=== PATIENT | female | born 1945 | race Caucasian/White ===

== ENCOUNTER 2019-08-10 09:39 | Outpatient (CLI) | payer MEDICARE, MEDICAID, OTHER, SELFPAY ==
[2019-08-10 10:16] LABS: Basophils # 0.1 10^3/uL (0.0-0.1); Eosinophils % 0.8 %; Hematocrit 36.6 % (37.0-47.0); Hemoglobin 10.5 g/dL (11.5-15.3); Lymphocytes % 20.2 %; Mean Corpuscular HGB Conc 28.7 g/dL (30.0-36.0); Mean Corpuscular Hemoglobin 24.8 pg (28.0-34.0); Mean Corpuscular Volume 86.5 fL (81-99); Mean Platelet Volume 9.4 fL (7.4-10.4); Monocytes # 0.4 10^3/uL (0.2-0.9); Monocytes % 7.4 %; Neutrophils # 3.5 10^3/uL (1.8-7.7); Neutrophils % 70.2 %; Nucleated Red Blood Cells % 0 %; Platelet Count 294 10^3/cmm (130-400); Red Blood Count 4.23 10^6/uL (4.1-5.3)
[2019-08-10 11:24] LABS: Add RBC Morph Yes; Slide Review Slide Review Perform
[2019-08-10 11:25] LABS: Anisocytosis 1+; Dimorphic RBC 2+; Ovalocytes Trace; Poikilocytosis 2+; Tear Drop Cells Trace
[2019-08-10 11:26] LABS: Macrocytosis 2+; RBC Morph Comp Yes
[2019-08-10 11:29] LABS: Pathology Refferal No
== END 2019-08-10 09:40 | disposition home or self-care (01) ==
LOC: LAB 09:51
PROVIDERS: PCP Family Medicine; Visit Provider Family Medicine
DX: Z13.0 Encounter for screening for diseases of the blood and blood-forming organs and certain disorders involving the immune mechanism (principal)
CPT/HCPCS: 36415; 85025

== ENCOUNTER 2019-08-24 10:07 | Outpatient (CLI) | payer MEDICARE, MEDICAID, OTHER, SELFPAY ==
[2019-08-24 10:39] LABS: Basophils # 0.1 10^3/uL (0.0-0.1); Basophils % 1.3 %; Eosinophils # 0.1 10^3/uL (0.0-0.8); Eosinophils % 1.1 %; Hematocrit 40.9 % (37.0-47.0); Hemoglobin 12.1 g/dL (11.5-15.3); Lymphocytes # 1.3 10^3/uL (0.8-4.8); Lymphocytes % 22.7 %; Mean Corpuscular HGB Conc 29.6 g/dL (30.0-36.0); Mean Corpuscular Hemoglobin 26.7 pg (28.0-34.0); Mean Corpuscular Volume 90.3 fL (81-99); Mean Platelet Volume 9.5 fL (7.4-10.4); Monocytes # 0.5 10^3/uL (0.2-0.9); Monocytes % 8.7 %; Neutrophils # 3.6 10^3/uL (1.8-7.7); Nucleated Red Blood Cells % 0 %; Platelet Count 314 10^3/cmm (130-400); Red Blood Count 4.53 10^6/uL (4.1-5.3); White Blood Count 5.5 10^3/uL (4.0-10.0)
[2019-08-24 10:55] LABS: Iron 39 ug/dL (37-145)
[2019-08-24 11:21] LABS: Add RBC Morph Yes
[2019-08-24 11:22] LABS: RBC Morph Comp No
[2019-08-24 11:31] LABS: Poikilocytosis 2+
[2019-08-24 11:32] LABS: Anisocytosis 2+
== END 2019-08-24 10:08 | disposition home or self-care (01) ==
LOC: LAB 10:12
PROVIDERS: PCP Family Medicine; Visit Provider Family Medicine
DX: Z13.0 Encounter for screening for diseases of the blood and blood-forming organs and certain disorders involving the immune mechanism (principal)
CPT/HCPCS: 36415; 83540; 85025

== ENCOUNTER 2019-09-07 14:09 | Outpatient (CLI) | payer MEDICARE, OTHER, MEDICAID, SELFPAY ==
--- NOTE | 2019-09-07 14:19 | USCV_ITS ---
Nguyen Washburn Age: 73 Gender: F : 1945 Exam Date: 09/07/2019 14:37 Ordering Phys: NOT ON FILE, DOCTOR XX Technologist: Exam Location: [facility] [place]_ Indication: CLAUDICATION RIGHT LEFT Brachial 138.00 mmHg Brachial 130.00 mmHg Pressure (mmHg) Waveform Pressure (mmHg) Waveform 135.00 VEHICLE OPERATOR 137.00 133.00 DPA 130.00 0.98 Ankle/Brachial Index 0.99 127.00 Pre-Exercise Toe Pressure 123.00 0.92 Pre-Exercise Toe/Brachial Index 0.89 FINDINGS Normal resting ABIs bilaterally Normal resting TBIs bilateral CONCLUSIONS No significant arterial obstruction, based on the above findings Dr Robert Woo MD [facility] (Electronically Signed) Final Date: 08 September 2019 15:25 S
--- NOTE | 2019-09-07 14:22 | USCV_ITS ---
Wu Nguyen Age: 73 Gender: F : 1945 Exam Date: 09/07/2019 14:37 Ordering Phys: NOT ON FILE, DOCTOR XX Technologist: Katrina Patterson Exam Location[place] [facility] [place] Indication: OCCLUSION Risk Factors: Previous Vascular Surgery: Right Brachial BP: / Left Brachial BP: / Right Left Velocity (cm/s) Spectral Plaque Velocity (cm/s) Spectral Plaque Syst/Diast Broadening Syst/Diast Broadening 89.30/ 25.40 Prox CCA 91.50 / 23.20 69.50/ 17.60 Mid CCA 95.90 / 27.60 93.70/ 28.70 Distal CCA 80.50 / 27.60 71.70/ 25.40 Prox ICA 105.80/ 28.70 79.40/ 17.60 Mid ICA 94.80 / 33.10 93.70/ 35.30 Distal ICA 101.40/ 33.10 140.00 ECA 127.90 1.35 ICA/CCA 1.10 Antegrade Vertebral Antegrade 52.90/ 17.60 cm/s 71.70/ 26.50 cm/s Tri Subclavian Tri FINDINGS Moderate heterogeneous plaques at the bifurcation and proximal internal carotid artery. Minimal thickening in the common carotid arteries bilaterally Antegrade flow in the vertebral arteries bilaterally Normal Doppler flow velocities in the external and subclavian arteries bilaterally CONCLUSIONS Moderate heterogeneous plaques at the bifurcation and proximal internal carotid arteries bilaterally with velocity elevation consistent with 16-49% stenosis. Minimal thickening in the common carotid arteries bilaterally. No previous studies are available for comparison. Dr Robert Woo MD FAC (Electronically Signed) Final Date: 08 September 2019 15:33 S
== END 2019-09-07 14:10 | disposition home or self-care (01) ==
LOC: US 14:10
PROVIDERS: PCP Family Medicine; Visit Provider Surgery Vascular Surgery
DX: I65.23 Occlusion and stenosis of bilateral carotid arteries (principal); Z98.890 Other specified postprocedural states
CPT/HCPCS: 93880; 93922

== ENCOUNTER 2019-09-25 09:48 | Outpatient (CLI) | payer MEDICARE, OTHER, MEDICAID, SELFPAY ==
[2019-09-25 10:22] LABS: Basophils # 0.1 10^3/uL (0.0-0.1); Basophils % 0.8 %; Eosinophils # 0.1 10^3/uL (0.0-0.8); Eosinophils % 1.3 %; Hematocrit 45.2 % (37.0-47.0); Hemoglobin 13.9 g/dL (11.5-15.3); Lymphocytes # 1.4 10^3/uL (0.8-4.8); Lymphocytes % 22.9 %; Mean Corpuscular HGB Conc 30.8 g/dL (30.0-36.0); Mean Corpuscular Volume 91.1 fL (81-99); Mean Platelet Volume 9.4 fL (7.4-10.4); Monocytes # 0.5 10^3/uL (0.2-0.9); Monocytes % 7.5 %; Neutrophils # 4.1 10^3/uL (1.8-7.7); Neutrophils % 67.3 %; Nucleated Red Blood Cells % 0 %; Platelet Count 273 10^3/cmm (130-400); Red Blood Count 4.96 10^6/uL (4.1-5.3); Red Cell Distribution Width 18.3 % (12.1-15.1)
[2019-09-25 10:38] LABS: Iron 38 ug/dL (37-145)
== END 2019-09-25 09:49 | disposition home or self-care (01) ==
LOC: LAB 09:53
PROVIDERS: PCP Family Medicine; Visit Provider Family Medicine
DX: Z13.0 Encounter for screening for diseases of the blood and blood-forming organs and certain disorders involving the immune mechanism (principal)
CPT/HCPCS: 36415; 83540; 85025

== ENCOUNTER 2020-05-27 13:56 | Outpatient (CLI) | payer MEDICARE, OTHER, MEDICAID, SELFPAY ==
--- NOTE | 2020-05-27 14:03 | XR_ITS ---
WS: [id number] DEXA (DUAL ENERGY X-RAY ABSORPTIOMETRY) Bone mineral density was performed using a [employer] machine. HISTORY: OTHER SPECIFIED ORDERS OF BONE DENSITY AND STRUCTURES COMPARISON: None available. Lumbar spine BMD (L1-L4): 1.250 g/cm2 T score: 0.6 Z score: 1.9 Total hip BMD: Left: 0.894 g/cm2. T score: -0.9 Z score: 0.4 Right: 0.836 g/cm2. T score: -1.4 Z score: -0.1 10 year probability of a major osteoporotic fracture is 23%. XR/XR DEXA axial skeleton* 40331 IMPRESSION: OSTEOPENIA based upon the WHO classification for females.
== END 2020-05-27 13:57 | disposition home or self-care (01) ==
PROVIDERS: PCP Family Medicine; Visit Provider Family Medicine
DX: M85.89 Other specified disorders of bone density and structure, multiple sites (principal)
CPT/HCPCS: 77080

== ENCOUNTER 2020-07-04 10:01 | Outpatient (CLI) | payer MEDICARE, OTHER, MEDICAID, SELFPAY ==
[2020-07-04 12:14] LABS: Basophils # 0.1 10^3/uL (0.0-0.1); Basophils % 0.9 %; Eosinophils # 0.1 10^3/uL (0.0-0.8); Eosinophils % 0.9 %; Hematocrit 39.7 % (37.0-47.0); Hemoglobin 11.9 g/dL (11.5-15.3); Lymphocytes # 1.5 10^3/uL (0.8-4.8); Lymphocytes % 19.5 %; Mean Corpuscular Hemoglobin 24.3 pg (28.0-34.0); Mean Corpuscular Volume 81.2 fL (81-99); Mean Platelet Volume 9.3 fL (7.4-10.4); Monocytes # 0.5 10^3/uL (0.2-0.9); Monocytes % 6.2 %; Neutrophils # 5.59 10^3/uL (1.8-7.7); Neutrophils % 72.2 %; Nucleated Red Blood Cells % 0 %; Platelet Count 352 10^3/cmm (130-400); Red Blood Count 4.89 10^6/uL (4.1-5.3); Red Cell Distribution Width 18.5 % (12.1-15.1); Reticulocyte % 1.6 % (0.5-2.0); White Blood Count 7.7 10^3/uL (4.0-10.0)
[2020-07-04 12:39] LABS: Alanine Aminotransferase 14 U/L (0-33); Albumin Level 4.3 g/dL (3.5-5.2); Alkaline Phosphatase 115 IU/L (35-105); Aspartate Amino Transferase 17 U/L (0-32); Blood Urea Nitrogen 10 mg/dL (8-23); Calcium 9.2 mg/dL (8.5-10.5); Carbon Dioxide 27 mmol/L (22-29); Chloride 99 mmol/L (98-107); Ferritin 15 ng/mL (15-150); Globulin 2.7 g/dL (1.3-4.6); Glucose 108 mg/dL (65-115); Iron 26 ug/dL (37-145); Lactate Dehydrogenase 181 U/L (135-214); Osmolality Calculated 286 mOsm/kg (285-295); Percent Saturation 6.3 % (20-50); Sodium 138 mmol/L (136-145); Total Bilirubin 0.5 mg/dL (0.15-1.2); Total Iron Binding Capacity 407 mcg/dl; Unsaturated Iron Binding 381 ug/dL (112-347)
[2020-07-04 12:53] LABS: Vitamin B12 471 pg/mL (232-1245)
[2020-07-04 13:04] LABS: Erythrocyte Sedimentation Rate 25 mm/hr (0-15)
--- NOTE | 2020-07-04 17:03 | ONC CON_ITS ---
Dr. Devi New Patient Note Patient: Nguyen Washburn Unit #: [id number]: 1945 Dicatated By: Albino Devi M.D.Date of Visit: Jul 04, 2020 Onc MED New Patient/Consult Referring Physician: Angelo Baca Chief Complaint: Anemia. History of Present Illness: This is a 74-year-old woman with iron deficiency anemia. She has hypertension, hyperlipidemia, and peripheral arterial disease. She underwent a percutaneous atherectomy of the left popliteal artery in June 2019. At that time she was noted to be severely anemic, hemoglobin 7.0 g. Her serum iron was low, consistent with iron deficiency. Her stool Hemoccult was reported to be negative. She had a good response to oral iron replacement, which she stopped approximately 8 months ago. At her follow-up visit on 05/13/2020 she was mildly anemic with hemoglobin 12.0 g with borderline low red cell indices. Her white blood cell count at that time was 8200 and her platelet count was normal at 351,000. Her serum iron was low again at 29 mcg/dL. She then restarted on her oral iron supplement. She is seen now in regard to the anemia. She does report that she has been feeling tired all the time, and she has had some decline in her activity tolerance. ECOG score is 1. Her appetite has not been very consistent she also has some early satiety. Over the past year she has had significant weight loss, in the range of 25 to 30 pounds. She does not have fever, night sweats, or hot flashes. She has some shortness of breath with activity. She does not complain of resting dyspnea, cough, or chest pain. She has been having some slight nausea with the iron supplement. She has heartburn if she overeats. Bowel function has been okay with fiber. She has not been aware of any blood in the stool. She had a colonoscopy about 3 years ago. She has urinary frequency and nocturia, and she also complains of poor bladder control. She has some pain in her lower back and hips. She does not complain of headache. She has dizziness if she gets up too fast. She has just occasional numbness/tingling. She does report having easy bruising with aspirin. Past Medical History: Her medical history includes gastroesophageal reflux disease, hyperlipidemia, hypertension, and peripheral arterial disease. Past Surgical History: Her surgical/procedural history includes tubal ligation, percutaneous atherectomy of left popliteal artery in 2019, left femoral/popliteal bypass in 2014, percutaneous angioplasty of the right common femoral artery in 2014, and right femoral/popliteal bypass in 2014. Medications: amLODIPine Besylate 1 (10 mg) Tablet Oral daily, Aspirin 1 (81 mg) Tablet, chewable Oral daily, Atorvastatin Calcium 1 (40 mg) Tablet Oral daily, Co Q 10 Capsule Oral daily, Daily Vitamin 1 Tablet Oral daily, Ferrous Sulfate 1 (325 (65 fe) mg) Tablet Oral daily, Fiber 1 Capsule Oral daily, Fish Oil 1 (500 mg) Capsule Oral daily Allergies: No Known Allergies. Social History: Ms. Washburn is and she is retired. She has a history of smoking at least a pack of cigarettes daily for 50+ years. She quit smoking approximately 2013. She has just occasional alcohol use. Family History: Father of heart disease at age 58. Mother at age 60 with complications from surgery. Brother age 32 from gunshot. A sister at age 38 from complications of vaginal cancer. Her other sister has been treated for melanoma. Review Of Symptoms: Constitutional - She has been feeling tired she has had some decline in her activity tolerance. Her appetite has not been very consistent and she has early satiety. She has had a weight loss in the range of 20 to 25 pounds over the past year. She does not have fever, night sweats, or hot flashes. ECOG score is 1, Eyes - She has cataracts, ENMT - She has hearing loss. No tinnitus. No sinus congestion/drainage. No mouth sores. No sore throat or difficulty swallowing, Hematologic/Lymphatic - She bruises easily with the aspirin, Respiratory - She has some shortness of breath with activity. No cough. No pleuritic pain or hemoptysis, Cardiovascular - No angina pain. No palpitations, Gastrointestinal - She has had some slight nausea with the iron supplement. She has heartburn if she overeats. Bowel function has been fine with fiber. No blood in the stool or black stools. She had a colonoscopy approximately 2 years ago, Genitourinary (F) - No dysuria or hematuria. She has urinary frequency and nocturia and she has difficulty with bladder control, Musculoskeletal - She has some pain in her lower back and hips, Integumentary - No skin rash or other skin changes, Neurologic - No headache. She has dizziness if she gets up too fast. She occasionally has numbness. No other focal neurologic symptoms, Psychiatric - No anxiety or depression. She has difficulty sleeping. Vital Signs: Performed on Jul 04, 2020 10:55: 5, 4, 25.72, 1.86 sq.m, 67.00 in, 98 %, 101 /min (HIGH), 18 /min, 133/85 mm(hg), 97.8 F (LOW), and 164.2 lbs (HIGH). Physical Examination: Constitutional - She appears to be in good general health, Eyes - Sclerae nonicteric. Conjunctivae clear, ENMT - No lesions noted in the oral cavity, Neck - No mass or thyromegaly, Hematologic/Lymphatic - No cervical, clavicular, or axillary adenopathy, Respiratory - Lungs are clear with diminished air movement bilaterally, Cardiovascular - Heart rhythm is regular. There is a mild tachycardia. There is no murmur, gallop, or rub noted, Abdomen - Soft and non-tender. Liver and spleen are not enlarged. There is no abdominal mass or ascites noted and there is no inguinal adenopathy, Back/Spine - No spine or CVA tenderness noted, Extremities - No edema. She has good dorsalis pedis pulses bilaterally, Integumentary - No rashes. No suspicious skin lesions noted, Neurologic - No focal neurologic deficits noted. Problem List: 1. Recurrent iron deficiency anemia. In the absence of any evidence of GI blood loss, this would appear to be most likely due to inadequate oral iron absorption. 2. She has had significant, unexplained weight loss which is worrisome for underlying malignancy, though she had negative colonoscopy within the past 3 years and she has not had any documented GI blood loss. 3. Hypertension. 4. Hyperlipidemia. 5. Peripheral arterial disease. 6. GERD. Problems Addressed with this Encounter and Plan: 1. Patient with recurrent iron deficiency anemia. In the absence of any evidence of GI blood loss, this would appear to be most likely due to inadequate oral iron absorption. I will check additional laboratory studies today to include CBC, comprehensive metabolic profile, reticulocyte count, LDH level, serum iron studies and ferritin, and B12 level. I also will have her bring in another stool sample for IFOB. If she remains iron deficient on oral iron supplementation, she will be scheduled to come in for parenteral iron replacement with 1 month interval follow-up. 2. She has had significant, unexplained weight loss which is worrisome for underlying malignancy, though she had negative colonoscopy within the past 3 years and she has not had any documented GI blood loss. Depending on the lab findings and results of the stool testing, I may consider further evaluation with the EGD and/or CT scanning. Signed By: Albino Devi M.D. <<Signature on File>>
== END 2020-07-04 10:02 | disposition home or self-care (01) ==
PROVIDERS: PCP Family Medicine; Visit Provider Internal Medicine Medical Oncology
DX: D50.9 Iron deficiency anemia, unspecified (principal); R63.4 Abnormal weight loss; I10 Essential (primary) hypertension; E78.5 Hyperlipidemia, unspecified; I73.9 Peripheral vascular disease, unspecified; K21.9 Gastro-esophageal reflux disease without esophagitis
CPT/HCPCS: 36415; 80053; 82607; 82728; 83540; 83550; 83615; 85025; 85045; 85651; 99205

== ENCOUNTER 2020-07-12 06:05 | Outpatient (CLI) | payer MEDICARE, OTHER, MEDICAID, SELFPAY ==
[2020-07-12] MEDS: ferric carboxy (IVPB) 750 MG in sodium chloride 0.9% (100 ml) 100 ML 460 MG IV (08:20)
== END 2020-07-12 06:06 | disposition home or self-care (01) ==
PROVIDERS: PCP Family Medicine; Visit Provider Internal Medicine Medical Oncology
DX: D50.9 Iron deficiency anemia, unspecified (principal)
CPT/HCPCS: 96365; J1439

== ENCOUNTER 2020-07-19 06:13 | Outpatient (CLI) | payer MEDICARE, OTHER, MEDICAID, SELFPAY ==
[2020-07-19] MEDS: ferric carboxy (IVPB) 750 MG in sodium chloride 0.9% (100 ml) 100 ML 460 MG IV (09:40)
== END 2020-07-19 06:14 | disposition home or self-care (01) ==
LOC: ONCMED 06:15
PROVIDERS: PCP Family Medicine; Visit Provider Internal Medicine Medical Oncology
DX: D50.9 Iron deficiency anemia, unspecified (principal)
CPT/HCPCS: 96365; J1439

== ENCOUNTER 2020-08-12 06:58 | Outpatient (CLI) | payer MEDICARE, OTHER, MEDICAID, SELFPAY ==
--- NOTE | 2020-08-12 07:14 | MM_ITS ---
WS: [id number] BILATERAL SCREENING DIGITAL MAMMOGRAM WITH CAD HISTORY: SCREENING COMPARISON: 07/28/2018 Bilateral CC and MLO views submitted. Computer aided detection analyzed. Breast composition: The breasts are almost entirely fatty. No suspicious masses, microcalcifications or architectural distortion. Benign scattered calcifications in each breast. MM/[place] [id number] IMPRESSION: BI-RADS: 2-Benign FOLLOW UP: 1 Year Follow-up
[2020-08-12 08:44] LABS: Basophils # 0.1 10^3/uL (0.0-0.1); Basophils % 0.9 %; Eosinophils # 0.1 10^3/uL (0.0-0.8); Eosinophils % 1.5 %; Hematocrit 43.6 % (37.0-47.0); Hemoglobin 13.8 g/dL (11.5-15.3); Lymphocytes # 1.7 10^3/uL (0.8-4.8); Lymphocytes % 26.5 %; Mean Corpuscular HGB Conc 31.7 g/dL (30.0-36.0); Mean Corpuscular Hemoglobin 28.3 pg (28.0-34.0); Mean Corpuscular Volume 89.3 fL (81-99); Mean Platelet Volume 10.1 fL (7.4-10.4); Monocytes # 0.5 10^3/uL (0.2-0.9); Neutrophils # 4.05 10^3/uL (1.8-7.7); Neutrophils % 62.8 %; Nucleated Red Blood Cells % 0 %; Platelet Count 256 10^3/cmm (130-400); Red Blood Count 4.88 10^6/uL (4.1-5.3); Red Cell Distribution Width 22.5 % (12.1-15.1); White Blood Count 6.5 10^3/uL (4.0-10.0)
[2020-08-12 09:00] LABS: Alanine Aminotransferase 16 U/L (0-33); Albumin Level 4.3 g/dL (3.5-5.2); Alkaline Phosphatase 94 IU/L (35-105); Anion Gap 14.4 (5-19); Aspartate Amino Transferase 18 U/L (0-32); Blood Urea Nitrogen 8 mg/dL (8-23); Calcium 8.9 mg/dL (8.5-10.5); Carbon Dioxide 28 mmol/L (22-29); Chloride 101 mmol/L (98-107); Ferritin 439 ng/mL (15-150); Globulin 2.8 g/dL (1.3-4.6); Glucose 102 mg/dL (65-115); Iron 73 ug/dL (37-145); Osmolality Calculated 287 mOsm/kg (285-295); Percent Saturation 25.4 % (20-50); Potassium 4.4 mmol/L (3.5-5.1); Sodium 139 mmol/L (136-145); Total Bilirubin 0.3 mg/dL (0.15-1.2); Total Iron Binding Capacity 287 mcg/dl; Total Protein 7.1 g/dL (6.6-8.7); Unsaturated Iron Binding 214 ug/dL (112-347)
[2020-08-12 09:28] LABS: Folate Level 11.3 ng/mL (4.8-37.3)
--- NOTE | 2020-08-13 06:58 | ONC FU_ITS ---
Dr. Devi Patient Follow-Up Note Patient: Nguyen Washburn Unit #: [id number]: 1945 Dicatated By: Albino Devi M.D.Date of Visit:August 12, 2020 Onc Med Follow-up/Prog Note Chief Complaint: Anemia. History of Present Illness: This is a 74-year-old woman with iron deficiency anemia. She has hypertension, hyperlipidemia, and peripheral arterial disease. She underwent a percutaneous atherectomy of the left popliteal artery in June 2019. At that time she was noted to be severely anemic, hemoglobin 7.0 g. Her serum iron was low, consistent with iron deficiency. Her stool Hemoccult was reported to be negative. She had a good response to oral iron replacement which she stopped after about 6 months of treatment. At her follow-up visit on 05/13/2020 she was mildly anemic with hemoglobin 12.0 g with borderline low red cell indices. Her white blood cell count at that time was 8200 and her platelet count was normal at 351,000. Her serum iron was low again at 29 mcg/dL. She then restarted on her oral iron supplement. I had seen her initially on 07/04/2020. She was still mildly anemic with hemoglobin 11.9 g and she had evidence of iron deficiency with transferrin saturation 6.3% and serum ferritin low at 15 ng/mL. As she was not responding to the oral iron, she was given parenteral iron replacement with 2 infusions of Injectafer. She is seen for a follow-up visit. She says she feels really good. She has had significant improvement in her energy/activity tolerance. Her ECOG score is 0. She says she normally does not have much appetite. She does not have fever or night sweats. She had some difficulty with her bowel movements for 1 to 2 weeks after her second iron infusion, but that has resolved now. She otherwise tolerated the parenteral iron well. She has a little bit of acid reflux, which she manages adequately with Pepcid as needed. She has some urgency with urination. She has no other significant complaints. Medications: amLODIPine Besylate 1 (10 mg) Tablet Oral daily, Aspirin 1 (81 mg) Tablet, chewable Oral daily, Atorvastatin Calcium 1 (40 mg) Tablet Oral daily, Co Q 10 Capsule Oral daily, Daily Vitamin 1 Tablet Oral daily, Ferrous Sulfate 1 (325 (65 fe) mg) Tablet Oral daily, Fiber 1 Capsule Oral daily, Fish Oil 1 (500 mg) Capsule Oral daily Allergies: No Known Allergies. Vital Signs: Performed on August 12, 2020 10:11 Height - 67.00 in Weight - 164.4 lbs (HIGH) BSA - 1.86 sq.m BMI - 25.75 Temperature - 98.7 F Pulse - 108 /min (HIGH) Respiration - 18 /min BP - 124/85 mm(hg) O2 Sat - 97 % Pain - 0 Fatigue - 0 Physical Examination: Constitutional - She looks good generally, Eyes - Sclerae nonicteric. Conjunctivae clear, ENMT - No lesions noted in the oral cavity, Hematologic/Lymphatic - No cervical, clavicular, or axillary adenopathy, Respiratory - Lungs sound clear, Cardiovascular - Heart rhythm is regular. There is no murmur, gallop, or rub noted, Abdomen - Soft. Liver and spleen are not enlarged. There is no abdominal mass or ascites noted and there is no inguinal adenopathy, Extremities - There is slight swelling at the right ankle, Neurologic - No focal neurologic deficits noted. Lab/Imaging: Test performed on August 12, 2020 08:11 Ferritin 439 ng/mL Folate 11.3 ng/mL % Iron Saturation 25.4 % Glucose 102 mg/dL BUN 8 mg/dL Iron, Total 73 mcg/dL Creatinine 0.7 mg/dL TIBC 287 mcg/dL Cr Clearance (Est) 85.52 mL/min Sodium 139 mmol/L Potassium 4.4 mmol/L Chloride 101 mmol/L CO2 28 mmol/L Calcium 8.9 mg/dL Protein, Total 7.1 g/dL Albumin 4.3 g/dL Globulin 2.8 g/dL Bilirubin, Total 0.3 mg/dL Alkaline Phosphatase 94 IU/L AST (SGOT) 18 IU/L ALT (SGPT) 16 IU/L WBC 6.5 10^9/L RBC 4.88 10^12/L HGB 13.8 g/dL HCT 43.6 % MCV 89.3 fl MCH 28.3 pg MCHC 31.7 g/dL RDW 22.5 % Platelet Count 256 10^9/L MPV 10.1 fL Neutrophils (Gran) 4.05 10^9/L Lymphocytes 1.7 10^9/L Monocytes 0.5 10^9/L Eosinophils 0.1 10^9/L Basophils 0.1 10^9/L Manual Lymphocytes 26.5 % Manual Monocytes 8.0 % Manual Eosinophils 1.5 % Manual Basophils 0.9 % Problem List: 1. Recurrent iron deficiency anemia. 2. She has had significant, unexplained weight loss which is worrisome for underlying malignancy, though she had negative colonoscopy within the past 3 years and she has not had any documented GI blood loss. 3. Hypertension. 4. Hyperlipidemia. 5. Peripheral arterial disease. 6. GERD. Problems Addressed with this Encounter and Plan: Patient with recurrent iron deficiency anemia. In the absence of any evidence of GI blood loss, most likely due to inadequate oral iron absorption. She was given parenteral iron replacement with 2 infusions of Injectafer, completed on 07/19/2020. She has had a very good response with hemoglobin now up to 13.8 g. She will now continue her regular followup with Dr. Baca. I will see her again as needed. Signed By: Albino Devi M.D. <<Signature on File>>
== END 2020-08-12 06:59 | disposition home or self-care (01) ==
LOC: RADSHAW 06:59 → ONCMED 08:01
PROVIDERS: PCP Family Medicine; Visit Provider Family Medicine
DX: D50.9 Iron deficiency anemia, unspecified (principal); R63.4 Abnormal weight loss; I10 Essential (primary) hypertension; E78.5 Hyperlipidemia, unspecified; I73.9 Peripheral vascular disease, unspecified; K21.9 Gastro-esophageal reflux disease without esophagitis; Z79.899 Other long term (current) drug therapy; Z12.31 Encounter for screening mammogram for malignant neoplasm of breast
CPT/HCPCS: 77067; 80053; 82728; 82746; 83540; 83550; 85025; G0463

== ENCOUNTER → 2022-04-09 11:09 | Outpatient (BNVA) | payer MEDICARE, MEDICAID, SELFPAY | PROVIDERS: PCP Family Medicine; Visit Provider Family Medicine | DX: E53.8 Deficiency of other specified B group vitamins (principal); Z51.81 Encounter for therapeutic drug level monitoring; I10 Essential (primary) hypertension | CPT/HCPCS: 80053; 80061; 82607; 85025 ==

== ENCOUNTER → 2022-09-07 10:53 | Outpatient (BNVA) | payer MEDICARE, MEDICAID, SELFPAY | PROVIDERS: PCP Family Medicine; Visit Provider Family Medicine | DX: Z51.81 Encounter for therapeutic drug level monitoring (principal); R73.09 Other abnormal glucose; E61.1 Iron deficiency; I10 Essential (primary) hypertension; I73.9 Peripheral vascular disease, unspecified; R30.0 Dysuria; Z13.220 Encounter for screening for lipoid disorders | CPT/HCPCS: 80053; 80061; 83036; 83540; 83550; 85025; 87086 ==

== ENCOUNTER → 2022-12-08 11:08 | Outpatient (BNVA) | payer MEDICARE, MEDICAID, SELFPAY | PROVIDERS: PCP Family Medicine; Visit Provider Family Medicine | DX: I10 Essential (primary) hypertension (principal); E78.00 Pure hypercholesterolemia, unspecified; R73.09 Other abnormal glucose; E61.1 Iron deficiency; Z51.81 Encounter for therapeutic drug level monitoring | CPT/HCPCS: 82728; 83550; 84466; 85025 ==

== ENCOUNTER → 2023-03-09 10:15 | Outpatient (BNVA) | payer OTHER, MEDICAID, SELFPAY | PROVIDERS: PCP Family Medicine; Visit Provider Family Medicine | DX: E61.1 Iron deficiency (principal); Z86.010 Personal history of colon polyps; R19.7 Diarrhea, unspecified; Z51.81 Encounter for therapeutic drug level monitoring | CPT/HCPCS: 80053; 83550; 84466; 85025 ==

== ENCOUNTER → 2023-04-23 11:05 | Outpatient (BNVA) | payer OTHER, MEDICAID, SELFPAY | PROVIDERS: PCP Family Medicine; Visit Provider Surgery | DX: E61.1 Iron deficiency (principal) | CPT/HCPCS: 82274 ==

== ENCOUNTER → 2023-05-24 10:45 | Outpatient (BNVA) | payer OTHER, MEDICAID, SELFPAY | PROVIDERS: PCP Family Medicine; Visit Provider Family Medicine | DX: I10 Essential (primary) hypertension (principal); E78.00 Pure hypercholesterolemia, unspecified; D64.9 Anemia, unspecified | CPT/HCPCS: 80053; 80061; 82607; 83540; 84443; 85025 ==

== ENCOUNTER 2023-06-09 09:01 | Day surgery (SDC) | payer MEDICARE, MEDICAID, SELFPAY ==
[2023-06-09 09:24] VITALS: BP 122/92; PULSE 104; RESP 16; TEMP 36.4; O2SAT 97; BMI 23.8
--- NOTE | 2023-06-09 09:37 | ANES.PREANE2 ---
Pre-Anesthetic Assessment Height/Weight: Height 1.7 m Weight 68.946 kg Temp Pulse Resp BP Pulse Ox O2 Del Method 97.5 F L 104 H 16 122/92 97 Room Air 06/09/23 09:24 06/09/23 09:24 06/09/23 09:24 06/09/23 09:24 06/09/23 09:24 06/09/23 09:24 Operation Date: 06/09/23 10:35 Proposed Procedures p [id number] egd [id number] colon G0121 screen colon A risk E61.1 Z12.11(Not Applicable) - Mathieu Maharaj MD s Colonoscopy(Not Applicable) - Mathieu Maharaj MD Familial anesthetic complications: None Was Beta Parvin taken within 24 hours: N/A Was Clonidine taken within 24 hours: N/A Last intake: Intake Last Liquid Date 06/08/23 Last Liquid Time 21:00 Last Solid Date 06/07/23 Last Solid Time 18:00 Social Tobacco (quit 3 weeks ago) and No alcohol Exam alert, oriented x 3, clear to auscultation bilaterally and regular rate & rhythm Airway Mallampati: Class II Dentition: false CV/HEM Hypertension and Peripheral Vascular Disease Metabolic Hyperlipidemia Anesthetic Plan ASA status: 3 Anesthesia: MAC Risk of > 500 ml blood loss (7ml/kg in children): No Medications/Allergies Home Medications Medication Instructions Recorded Confirmed Last Taken Type aspirin 325 mg tablet 325 mg PO DAILY 04/09/22 06/07/23 06/05/23 History coenzyme Q10 10 mg capsule 10 mg PO DAILY 04/09/22 06/09/23 06/07/23 History atorvastatin 40 mg tablet 40 mg PO DAILY #90 tabs 05/24/23 06/07/23 06/07/23 Rx lisinopril 10 mg tablet 10 mg PO DAILY #90 tabs 06/03/23 06/09/23 06/07/23 Rx amlodipine 10 mg tablet 10 mg PO DAILY t 06/07/23 06/09/23 06/07/23 History fiber 9 tab PO DAILY 06/07/23 06/09/23 06/07/23 History ugwztyec-zcky-jejk 8 mg-folic 400 1 tab PO DAILY 06/07/23 06/09/23 06/07/23 History mcg-K 50 mcg-lutein 300 mcg tablet (Multivitamin Women 50 Plus) vitamin E 100 unit tablet 100 unit PO DAILY 06/07/23 06/09/23 06/07/23 History Allergies Allergy/AdvReac Type Severity Reaction Status Date / Time No Known Allergies Allergy Verified 06/07/23 10:58 [facility] Anesthesia Medical History Hx of colonic polyps History of anemia Patient needed iron transfusions x 2 - saw Dr Devi PAD (peripheral artery disease) Hypertension Surgical History History of bilateral tubal ligation S/P popliteal-distal bypass Bilateral - Dr Douglas - ~2014 Family History Mother CAD (coronary artery disease) Hypertension Father Hypertension Sister Cancer female cancer - in 1976 Sister Cancer Melanoma - cancer free for years Hypertension Social History Smoking and tobacco/nicotine status: current every day tobacco/nicotine user cigarettes Packs smoked per day: 0.75 [ Other cigarette details: Started at age 16 and stopped for 6 years. ] Alcohol intake: current Alcohol intake frequency: holidays/special occasions only Substance/Drug Use: never Current occupation: Worked in retail sales [employer] Anesthesia Cardiac Studies: No Data to Display
[2023-06-09] MEDS: sodium chloride 0.9% 1,000 ML 30 ML IV (10:00)
--- NOTE | 2023-06-09 10:59 | P.HP_ITS ---
Same Day Surgery H&P Indication for Procedure/HPI DATE OF PROCEDURE: June 09, 2023 CHIEF COMPLAINT/INDICATIONFOR SURGICAL PROCEDURE: iron deficiency anemia PREOP DIAGNOSIS: iron deficiency anemia PLANNED PROCEDURE: Operation Date: 06/09/23 10:35 Proposed Procedures p 43658 egd [id number] colon G0121 screen colon A risk E61.1 Z12.11(Not Applicable) - Mathieu Maharaj MD s Colonoscopy(Not Applicable) - Mathieu Maharaj MD Medications/Allergies* Home Medications Medication Instructions Recorded Confirmed Type aspirin 325 mg tablet 325 mg PO DAILY 04/09/22 06/07/23 History coenzyme Q10 10 mg capsule 10 mg PO DAILY 04/09/22 06/09/23 History amlodipine 10 mg tablet 10 mg PO DAILY t 06/07/23 06/09/23 History fiber 9 tab PO DAILY 06/07/23 06/09/23 History kzgdiaje-vblm-slul 8 mg-folic 400 1 tab PO DAILY 06/07/23 06/09/23 History mcg-K 50 mcg-lutein 300 mcg tablet (Multivitamin Women 50 Plus) vitamin E 100 unit tablet 100 unit PO DAILY 06/07/23 06/09/23 History Allergies/Adverse Reactions Allergy/AdvReac Type Severity Reaction Status Date / Time No Known Allergies Allergy Verified 06/07/23 10:58 Current Medications: Generic Name Dose Route Start Last Admin Trade Name Freq PRN Reason Stop Dose Admin Sodium Chloride 1,000 mls @ 30 mls/hr 06/09/23 09:15 06/09/23 10:00 Sodium Chloride 0.9% IV 06/10/23 09:14 30 mls/hr .Q24H YVES Administration Pertinent History/Comorbid Conditions* Medical History (Updated 05/24/23 @ 10:38 by Tamara Mcnair MD) Hx of colonic polyps History of anemia Patient needed iron transfusions x 2 - saw Dr Marito PETTIT (peripheral artery disease) Hypertension Surgical History (Updated 04/09/22 @ 19:08 by Mitchell Caban MD) History of bilateral tubal ligation S/P popliteal-distal bypass Bilateral - Dr Douglas - ~2014 Family History (Updated 04/09/22 @ 10:47 by Mitchell Caban MD) CAD (coronary artery disease) Mother Cancer Sister female cancer - in 1976 Sister Melanoma - cancer free for years Hypertension Mother Father Sister Social History Smoking and tobacco/nicotine status: current every day tobacco/nicotine user cigarettes Packs smoked per day: 0.75 [ Other cigarette details: Started at age 16 and stopped for 6 years. ] Alcohol intake: current Alcohol intake frequency: holidays/special occasions only Substance/Drug Use: never Current occupation: Worked in [employer] Pertinent Exam Findings alert, oriented x 3, clear to auscultation bilaterally and regular rate & rhythm Recommendations Surgery/Procedure today Coding Level of Care Code Acute Code for [facility] Anat
[2023-06-09 11:50] VITALS: BP 97/62; PULSE 78; RESP 18; TEMP 36.1; O2SAT 94
[2023-06-09 11:59] VITALS: BP 118/73; PULSE 88; RESP 18; O2SAT 95
--- NOTE | 2023-06-09 12:15 | ANE.PACU2 ---
Inpatient post-anesthesia follow up: Airway intact: Yes Vital signs: Temperature 97.0 F Pulse Rate 88 Respiratory Rate 18 Blood Pressure 118/73 Pulse Oximetry 95 Oxygen Delivery Me thod Room Air Oxygen Flow Rate Fraction of Inspir ed Oxygen Hydration adequate: Yes Nausea and vomiting: No Pain level: 1 Mental status: Baseline
== END 2023-06-09 12:18 | disposition home or self-care (01) ==
PROVIDERS: PCP Family Medicine; Visit Provider Surgery
PROC: 0DJ08ZZ Inspection of Upper Intestinal Tract, Via Natural or Artificial Opening Endoscopic (ICD-10-PCS; CPT 43235; principal; 2023-06-09 10:35)
PROC: 0DJD8ZZ Inspection of Lower Intestinal Tract, Via Natural or Artificial Opening Endoscopic (ICD-10-PCS; CPT 45378; 2023-06-09 10:35)
DX: Z12.11 Encounter for screening for malignant neoplasm of colon (principal); E61.1 Iron deficiency; K44.9 Diaphragmatic hernia without obstruction or gangrene; D12.2 Benign neoplasm of ascending colon; I10 Essential (primary) hypertension; E78.5 Hyperlipidemia, unspecified; Z79.82 Long term (current) use of aspirin; F17.210 Nicotine dependence, cigarettes, uncomplicated
CPT/HCPCS: 43235; 45380; 88305; J2704; J7030

== ENCOUNTER → 2023-06-22 10:24 | Outpatient (BNVA) | payer MEDICARE, MEDICAID, SELFPAY | PROVIDERS: PCP Family Medicine; Visit Provider Surgery | DX: K44.9 Diaphragmatic hernia without obstruction or gangrene (principal); Z09 Encounter for follow-up examination after completed treatment for conditions other than malignant neoplasm | CPT/HCPCS: 99214 ==

== ENCOUNTER 2023-07-05 08:10 | Outpatient (CLI) | payer MEDICARE, MEDICAID, SELFPAY ==
--- NOTE | 2023-07-05 08:30 | FL_ITS ---
WS: [id number] Exam: FL barium swallow [id number] Date/Time of Exam: 07/05/2023 8:12 AM Reason For Exam: Fluoroscopy time: 1min [id number] minutes # of spot films: 4 Oropharyngeal phase of swallowing was normal. The esophagus is smooth in contour. No sign of esophage al stricture or mass. A large paraesophageal hiatal hernia is noted. Opacification of the stomach faizan ws marked prominence of gastric mucosa. There is posterior displacement of the distal esophagus secon anitra to the hiatal hernia. IMPRESSION: 1. No indication of esophageal mass, stricture or motility disorder. No reflux observed. 2. Large paraesophageal hiatal hernia which displaces the distal esophagus posteriorly. Marked prominence of the visualized gastric mucosa which may represent gastritis. Recommendations: Endoscopic evaluation of the stomach should be considered for further work-up.
== END 2023-07-05 08:11 | disposition home or self-care (01) ==
LOC: RAD 08:10
PROVIDERS: PCP Family Medicine; Visit Provider Surgery
DX: K44.9 Diaphragmatic hernia without obstruction or gangrene (principal)
CPT/HCPCS: 74220

== ENCOUNTER → 2023-08-04 13:44 | Outpatient (BNVA) | payer MEDICARE, MEDICAID, SELFPAY | PROVIDERS: PCP Family Medicine; Visit Provider Surgery | DX: K44.9 Diaphragmatic hernia without obstruction or gangrene (principal) | CPT/HCPCS: 99212 ==

== ENCOUNTER → 2023-11-23 09:43 | Outpatient (BNVA) | payer MEDICARE, MEDICAID, SELFPAY | PROVIDERS: PCP Family Medicine; Visit Provider Family Medicine | DX: Z86.2 Personal history of diseases of the blood and blood-forming organs and certain disorders involving the immune mechanism (principal); I10 Essential (primary) hypertension; E78.00 Pure hypercholesterolemia, unspecified; D64.9 Anemia, unspecified | CPT/HCPCS: 80053; 80061; 83540; 84443; 85025 ==

== ENCOUNTER → 2024-05-24 13:03 | Outpatient (BNVA) | payer MEDICARE, MEDICAID, SELFPAY | PROVIDERS: PCP Nurse Practitioner Family; Visit Provider Nurse Practitioner Family | DX: I10 Essential (primary) hypertension (principal); R73.09 Other abnormal glucose; Z86.2 Personal history of diseases of the blood and blood-forming organs and certain disorders involving the immune mechanism | CPT/HCPCS: 80053; 80061; 83036; 84443; 85025 ==

== ENCOUNTER 2024-05-31 21:14 | Emergency (ER) | payer MEDICARE, MEDICAID, SELFPAY ==
[2024-05-31 21:18] VITALS: BP 164/101; PULSE 121; RESP 16; TEMP 36.4; O2SAT 97
--- NOTE | 2024-05-31 21:23 | ECG_ITS ---
[email or web address] Date: 2024-05-31 Pat Name: Nguyen Washburn Department: Room: Gender: Female [employer]os[employer] Engineer: : 1945 Requested By: Bam Clinton Order Number: [id number] Stevens MD: Ricky Mckeon M.D. Measurements Intervals [place] Rate: 117 P: 80 MO: 167 QRS: 60 QRSD: 78 T: 69 QT: 323 QTc: 451 Interpretive Statements SINUS TACHYCARDIA POSSIBLE RIGHT ATRIAL ENLARGEMENT [0.25mV P-WAVE] No previous ECG available for comparison Electronically Signed On 06-02-2024 19:08:38 CDT by Ricky Mckeon M.D. [email or web address]
[2024-05-31 23:07] LABS: Basophils % 0.1 %; Eosinophils % 0.1 %; Hematocrit 45.8 % (36-47); Lymphocytes # 0.8 10^3/uL (0.8-4.8); Lymphocytes % 6.8 %; Mean Corpuscular HGB Conc 33.2 g/dL (30-55); Mean Corpuscular Hemoglobin 29.2 pg (27-33); Mean Corpuscular Volume 88.1 fl (85-98); Mean Platelet Volume 9.1 fL (7.4-10.4); Monocytes # 0.3 10^3/uL (0.2-0.9); Monocytes % 2.5 %; Neutrophils # 10.17 10^3/uL (1.8-7.7); Neutrophils % 90.1 %; Nucleated Red Blood Cells % 0 %; Platelet Count 276 10^3/cmm (157-399); Red Cell Distribution Width 13.5 % (12.1-15.1); White Blood Count 11.29 10^3/uL (3.29-11.43)
[2024-05-31] MEDS: sodium chloride 0.9% 1,000 ML 999 ML IV (23:17)
[2024-05-31] MEDS: ondansetron 2 mg/ML SDV 2 mL 4 MG IVP (23:17)
[2024-05-31 23:37] LABS: Alanine Aminotransferase 25 U/L (0-33); Albumin Level 4.6 g/dL (3.5-5.2); Alkaline Phosphatase 93 U/L (35-105); Blood Urea Nitrogen 15 mg/dL (8-23); Calcium 9.8 mg/dL (8.5-10.5); Carbon Dioxide 23 mmol/L (22-29); Chloride 97 mmol/L (98-107); Creatinine Clr Calc Pharmacy 60.9529; Globulin 3.6 g/dL (1.3-4.6); Sodium 135 mmol/L (136-145); Total Bilirubin 0.6 mg/dL (0.15-1.2); Total Protein 8.2 g/dL (6.6-8.7)
[2024-06-01 00:03] LABS: Aspartate Amino Transferase 22 U/L (0-32); Glucose 157 mg/dL (65-115); Osmolality Calculated 284 mOsm/kg (285-295)
[2024-06-01] MEDS: prochlorperazine 10 mg/2 mL Inj 5 MG IVP (00:39)
[2024-06-01 00:43] VITALS: BP 174/86; PULSE 119; O2SAT 97
[2024-06-01] MEDS: sodium chloride 0.9% 1,000 ML 999 ML IV (01:01)
--- NOTE | 2024-06-01 01:40 | W.ED.NAVMDI ---
HPI - Nausea/Vomiting/Diarrhea General: Chief complaint: Nausea/Vomiting/Diarrhea Stated complaint: N/V for a day in a half,Dehydrated Time Seen by Provider: 05/31/24 22:42 History of Present Illness: This patient is a 78-year-old white female who presents to the emergency department with nausea and vomiting that started yesterday. She has not noticed any diarrhea. She thinks she may have been running a low-grade fever. Some abdominal pain secondary to retching. Associated nausea: Yes Associated symtoms: Reports nausea Related Data Home Medications ?Medication ?Instructions ?Recorded ?Confirmed aspirin 325 mg tablet 325 mg PO DAILY 04/09/22 05/24/24 coenzyme Q10 10 mg capsule 10 mg PO DAILY 04/09/22 05/24/24 fiber 9 tab PO DAILY 06/07/23 05/24/24 lozxuedz-chod-flza 8 mg-folic 400 1 tab PO DAILY 06/07/23 05/24/24 mcg-K 50 mcg-lutein 300 mcg tablet (Multivitamin Women 50 Plus) vitamin E 100 unit tablet 100 unit PO DAILY 06/07/23 05/24/24 Previous Rx's ?Medication ?Instructions ?Recorded amlodipine 10 mg tablet 10 mg PO DAILY #90 tabs 05/24/24 atorvastatin 40 mg tablet 40 mg PO DAILY #90 tabs 05/24/24 lisinopril 10 mg tablet 10 mg PO DAILY #90 tabs 05/24/24 prochlorperazine maleate 5 mg 5 mg PO TID PRN nausea and 06/01/24 tablet (Compazine) vomiting #20 tabs Allergies Allergy/AdvReac Type Severity Reaction Status Date / Time No Known Allergies Allergy Verified 05/31/24 21:23 Review of Systems General: Reports: 10 or more systems reviewed and unremarkable except in HPI and below GI: Reports: nausea and vomiting [facility] PFSH: Medical History Hx of colonic polyps History of anemia Patient needed iron transfusions x 2 - saw Dr Marito PETTIT (peripheral artery disease) Hypertension Surgical History History of hernia repair hiatal hernia repair September 2023 at [place] with Dr. Antunez History of bilateral tubal ligation S/P popliteal-distal bypass Bilateral - Dr Douglas - ~2014 Family History Mother CAD (coronary artery disease) Hypertension Father Hypertension Sister Cancer female cancer - in 1976 Sister Cancer Melanoma - cancer free for years Hypertension Social History Smoking and tobacco/nicotine status: current some day tobacco/nicotine user (during stress) cigarettes Packs smoked per day: 0.75 [ Other cigarette details: Started at age 16 and stopped for 6 years. ] Alcohol intake: current Alcohol intake frequency: holidays/special occasions only Substance/Drug Use: never Current occupation: Worked in [employer] sales Physical Exam Const: COMMON NORMALS: no acute distress, patient oriented x3 and no limitations GENERAL APPEARANCE: cooperative and comfortable HENMT: COMMON NORMALS: normocephalic, atraumatic, Normal nasal mucous membranes and turbinates present, moist oral mucous membranes and oropharynx normal HEAD & SCALP: normal to inspection, normocephalic and atraumatic FACE & SINUS: normal facial exam NOSE: Normal nasal mucous membranes and turbinates present Eye: COMMON NORMALS: Equal, round and reactive pupils present, EOMs intact bilaterally and conjunctivae normal GENERAL EYE: appearance normal, both eyes and all related structures CONJUNCTIVA: Yes conjunctivae normal PUPIL: Yes Equal, round and reactive pupils present Neck/C-Spine: COMMON NORMALS: supple and no JVD Chest: COMMONS NORMALS: normal inspection of the chest Resp: COMMON NORMALS: normal respiratory effort and clear to auscultation bilaterally AUSCULTATION: clear to auscultation bilaterally Cardio: COMMON NORMALS: no JVD, regular rate, regular rhythm, No gallops present (Cardio), No murmurs present (Cardio) and No rub (Cardio) RATE: regular rate RHYTHM: regular rhythm GI: COMMON NORMALS: Normal to inspection, nondistended, normoactive bowel sounds present, Soft to palpation and non-tender AUSCULTATION: Yes normoactive bowel sounds PALPATION: Yes Soft to palpation : COMMON NORMALS: Yes no CVA tenderness BLADDER/KIDNEY EXAM: Yes no CVA tenderness Back/Pelvis: COMMON NORMALS: no CVA tenderness and thoracic and lumbar spine normal to inspection Extremity: COMMON NORMALS: normal to inspection Neuro: COMMON NORMALS: patient oriented x3 and CN's II-XII intact bilaterally Psych: COMMON NORMALS: mental status grossly normal, Normal thought process present and cooperative THOUGHT PROCESS: Normal thought process present Skin: COMMON NORMALS: no rashes or lesions noted, turgor normal and no jaundice GENERAL SKIN EXAM: no rashes or lesions noted and turgor normal Course Vital Signs: Vital signs: Vital Signs Temperature 97.5 F L 05/31/24 21:18 Pulse Rate 119 H 06/01/24 00:43 Respiratory Rate 16 05/31/24 21:18 Blood Pressure 174/86 06/01/24 00:43 Pulse Oximetry 97 06/01/24 00:43 Oxygen Delivery Me thod Room Air 06/01/24 00:43 MDM - Nausea/Vomiting/Diarrhea Medical Decision Making CBC and CMP were normal. Patient was given 2 L of normal saline, 4 mg of Zofran and 5 mg of Compazine IV. Compazine finally relieved her nausea and vomiting. Patient was subsequently discharged in stable condition with a prescription for Compazine. I recommended she push clear liquids until symptoms subside then advance diet slowly. Follow-up with primary care provider in 2 to 3 days if no significant improvement. Lab Data 05/31/24 23:00 05/31/24 23:00 Laboratory Results WBC 11.29 10^3/uL (3.29-11.43) 05/31/24 23:00 RBC 5.20 10^6/uL (3.85-5.65) 05/31/24 23:00 Hgb 15.20 g/dL (11.27-16.99) 05/31/24 23:00 Hct 45.8 % (36-47) 05/31/24 23:00 MCV 88.1 fl (85-98) 05/31/24 23:00 MCH 29.2 pg (27-33) 05/31/24 23:00 MCHC 33.2 g/dL (30-55) 05/31/24 23:00 RDW 13.5 % (12.1-15.1) 05/31/24 23:00 Plt Count 276 10^3/cmm (157-399) 05/31/24 23:00 MPV 9.1 fL (7.4-10.4) 05/31/24 23:00 Neut % (Auto) 90.1 % 05/31/24 23:00 Lymph % (Auto) 6.8 % 05/31/24 23:00 [place] % (Auto) 2.5 % 05/31/24 23:00 Eos % (Auto) 0.1 % 05/31/24 23:00 Baso % (Auto) 0.1 % 05/31/24 23:00 Neut # (Auto) 10.17 10^3/uL (1.8-7.7) H 05/31/24 23:00 Lymph # (Auto) 0.8 10^3/uL (0.8-4.8) 05/31/24 23:00 [place] # (Auto) 0.3 10^3/uL (0.2-0.9) 05/31/24 23:00 Eos # (Auto) 0.0 10^3/uL (0.0-0.8) 05/31/24 23:00 Baso # (Auto) 0.0 10^3/uL (0.0-0.1) 05/31/24 23:00 Nucleated RBC % (auto) 0 % 05/31/24 23:00 Nucleated RBCs # 0.0 /100WBC 05/31/24 23:00 Sodium 135 mmol/L (136-145) L 05/31/24 23:00 Potassium 4.0 mmol/L (3.5-5.1) 05/31/24 23:00 Chloride 97 mmol/L (98-107) L 05/31/24 23:00 Carbon Dioxide 23 mmol/L (22-29) 05/31/24 23:00 Anion Gap 19.0 (5-19) 05/31/24 23:00 BUN 15 mg/dL (8-23) 05/31/24 23:00 Creatinine 0.7 mg/dL (0.5-0.9) 05/31/24 23:00 GFR Calculation Not Reportable 05/31/24 23:00 Glucose 157 mg/dL (65-115) H 05/31/24 23:00 Calculated Osmolality 284 mOsm/kg (285-295) L 05/31/24 23:00 Calcium 9.8 mg/dL (8.5-10.5) 05/31/24 23:00 Total Bilirubin 0.6 mg/dL (0.15-1.2) 05/31/24 23:00 AST 22 U/L (0-32) 05/31/24 23:00 ALT 25 U/L (0-33) 05/31/24 23:00 Alkaline Phosphatase 93 U/L (35-105) 05/31/24 23:00 Total Protein 8.2 g/dL (6.6-8.7) 05/31/24 23:00 Albumin 4.6 g/dL (3.5-5.2) 05/31/24 23:00 Globulin 3.6 g/dL (1.3-4.6) 05/31/24 23:00 No radiology studies performed this visit Discharge Plan Discharge Patient Disposition: Home Clinical Impression: Gastroenteritis Condition: Stable Prescriptions: New prochlorperazine maleate [Compazine] 5 mg tablet 5 mg PO TID PRN (Reason: nausea and vomiting) Qty: 20 0RF No Action aspirin 325 mg tablet 325 mg PO DAILY coenzyme Q10 10 mg capsule 10 mg PO DAILY amlodipine 10 mg tablet 10 mg PO DAILY Qty: 90 1RF atorvastatin 40 mg tablet 40 mg PO DAILY Qty: 90 1RF lisinopril 10 mg tablet 10 mg PO DAILY Qty: 90 1RF fiber Tablet 9 tab PO DAILY vitamin E 100 unit Tablet 100 unit PO DAILY Multivitamin Women 50 Plus 8 mg iron-400 mcg-50 mcg Tablet 1 tab PO DAILY Discharge Orders: Discharge ED (Routine); Ordered 06/01/24 Ordered By: Bam Clinton Referrals: Pilar Curran FNP [Primary Care Provider] - Patient Instructions: Gastroenteritis (DC) Activity Restrictions/Additional Instructions: Push clear liquids until symptoms subside then advance diet slowly. Follow-up with your primary care provider in 2 to 3 days if no improvement. Print Language: Chadian Coding Level of Care Code ED [employer] Manager for Neisha Coppola
[2024-06-01 02:23] VITALS: BP 116/63; PULSE 98; O2SAT 92
== END 2024-06-01 01:54 | disposition home or self-care (01) ==
PROVIDERS: Emergency Provider Emergency Medicine; PCP Nurse Practitioner Family
DX: K52.9 Noninfective gastroenteritis and colitis, unspecified (principal); Z79.82 Long term (current) use of aspirin; F17.210 Nicotine dependence, cigarettes, uncomplicated; I10 Essential (primary) hypertension
CPT/HCPCS: 36415; 80053; 85025; 93005; 96361; 96374; 96375; 99284; J0780; J2405; J7030

== ENCOUNTER → 2024-06-22 14:45 | Outpatient (BNVA) | payer MEDICARE, MEDICAID, SELFPAY | PROVIDERS: PCP Nurse Practitioner Family; Visit Provider Dermatology | DX: L82.1 Other seborrheic keratosis (principal); L57.8 Other skin changes due to chronic exposure to nonionizing radiation; L82.0 Inflamed seborrheic keratosis; L53.8 Other specified erythematous conditions; L29.89 Other pruritus; R20.8 Other disturbances of skin sensation; L57.0 Actinic keratosis | CPT/HCPCS: 17000; 17110; 99203 ==

== ENCOUNTER → 2024-12-07 11:08 | Outpatient (BNVA) | payer MEDICARE, MEDICAID, SELFPAY | PROVIDERS: PCP Nurse Practitioner Family; Visit Provider Nurse Practitioner Family | DX: Z86.2 Personal history of diseases of the blood and blood-forming organs and certain disorders involving the immune mechanism (principal); I10 Essential (primary) hypertension; R73.09 Other abnormal glucose | CPT/HCPCS: 80053; 80061; 83036; 85025 ==

== ENCOUNTER → 2024-12-25 12:42 | Outpatient (BNVA) | payer MEDICARE, MEDICAID, SELFPAY | PROVIDERS: PCP Nurse Practitioner Family; Visit Provider Nurse Practitioner Family | DX: M47.816 Spondylosis without myelopathy or radiculopathy, lumbar region (principal); M41.9 Scoliosis, unspecified | CPT/HCPCS: 72100 ==

== ENCOUNTER 2024-12-26 13:38 | Outpatient (CLI) | payer MEDICARE, MEDICAID, SELFPAY ==
--- NOTE | 2024-12-26 14:00 | XR_ITS ---
WS: [id number] SCREENING DEXA SCAN [employer] CLINICAL INFORMATION: Z78.0 - Asymptomatic menopausal state COMPARISON: 2020 FINDINGS: The L1-L4 bone mineral density measures 1.293 g/cm2. This corresponds to a T score score of 0.9 and Z score of 2.5. Left femoral neck bone mineral density measures 0.827 g/cm2. This corresponds to a T score of -1.4 and Z score of 0.2. Right femoral neck bone mineral density measures 0.790 g/cm2. This corresponds to a T score -1.7of and Z score of -0.1. Mean femoral neck bone mineral density measures 0.808 g/cm2. This corresponds to a T score of -1.6 and Z score of 0.1. XR/XR DEXA axial skeleton* [id number] IMPRESSION: Normal bone mineralization lumbar spine. Osteopenia femoral necks. Patient's FRAX calculated 10 year probability for major osteoporotic fracture i s 18.7% and osteoporotic hip fracture is 8.6%. Lumbar bone mineralization increased 3.4% Femoral neck bone density decreased -6.6%
== END 2024-12-26 13:39 | disposition home or self-care (01) ==
PROVIDERS: PCP Nurse Practitioner Family; Visit Provider Nurse Practitioner Family
DX: Z13.820 Encounter for screening for osteoporosis (principal); Z78.0 Asymptomatic menopausal state; M85.89 Other specified disorders of bone density and structure, multiple sites
CPT/HCPCS: 77080

== ENCOUNTER 2025-01-24 09:15 | Outpatient (CLI) | payer MEDICARE, MEDICAID, SELFPAY ==
--- NOTE | 2025-01-24 09:30 | MR_ITS ---
WS: [id number] MRI LUMBAR SPINE NONCONTRAST HISTORY: M54.50 - Low back pain, unspecified COMPARISON: None available. TECHNIQUE: Sagittal and axial multisequence imaging is submitted. Degenerative changes in the cervical and thoracic spine. No cord compression. L4 and L5 anterolisthesis by 3 to 4 mm. Small amount of reactive marrow edema along the adjacent endplates of T12 and L1. Disc spaces are mildly desiccated. Conus terminates normally at L1-2 disc level. L1-L2: Mild disc bulging and facet arthritis. No stenosis. L2-L3: Mild annular disc bulging with osteophytic ridging. Small LEFT foraminal disc osteophyte. Mild ligamentum flavum and facet arthritis. There is very slight disc contact on the traversing LEFT L3 nerve root. No foraminal stenosis. L3-L4: Diffuse annular disc bulging with osteophytic ridging, ligamentum flavum and facet arthritis. Moderate RIGHT and mild LEFT foraminal stenosis. L4-L5: Diffuse annular disc bulging. Small central disc protrusion. Marked ligamentum flavum and facet arthritis. Annular fissure in the LEFT lateral disc. Moderate to severe central, bilateral subarticular recess and moderate foraminal stenosis. L5-S1: Annular disc bulging with marked facet and ligamentum flavum hypertrophy. Moderate to severe central, subarticular recess and moderate bilateral foraminal stenosis. Bilateral small renal cysts. Common bile duct to the pancreatic head is measuring 9.5 mm. Gallbladder is still present. Mild thickening of the LEFT adrenal gland to 9.7 mm. MR/MR lumbar spine wo con* [id number] IMPRESSION: 1. Grade 1 anterolisthesis of L4 and L5. 2. Moderate to severe central, bilateral subarticular recess and moderate fora tl stenosis at L4-5 and L5-S1. Stenosis due to combination of disc disease, protrusions, osteophytes and facet arthropathy. 3. Moderate RIGHT and mild LEFT foraminal stenosis at L3-4. 4. Mild disc contact on the traversing LEFT L3 nerve root. 5. Common bile duct to the pancreatic head is dilated to 9.5 mm. Recommend fol low-up CT abdomen and pelvis with IV contrast.
== END 2025-01-24 09:16 | disposition home or self-care (01) ==
LOC: RAD 09:17
PROVIDERS: PCP Nurse Practitioner Family; Visit Provider Nurse Practitioner Family
DX: M48.061 Spinal stenosis, lumbar region without neurogenic claudication (principal); G89.29 Other chronic pain; M43.16 Spondylolisthesis, lumbar region; M48.07 Spinal stenosis, lumbosacral region; R93.7 Abnormal findings on diagnostic imaging of other parts of musculoskeletal system; K83.8 Other specified diseases of biliary tract; M47.892 Other spondylosis, cervical region; M47.894 Other spondylosis, thoracic region; R60.0 Localized edema; M51.369 Other intervertebral disc degeneration, lumbar region without mention of lumbar back pain or lower extremity pain; M47.896 Other spondylosis, lumbar region; M25.78 Osteophyte, vertebrae; M24.28 Disorder of ligament, vertebrae; M51.26 Other intervertebral disc displacement, lumbar region; N28.1 Cyst of kidney, acquired; E27.8 Other specified disorders of adrenal gland; M51.379 Other intervertebral disc degeneration, lumbosacral region without mention of lumbar back pain or lower extremity pain; M47.897 Other spondylosis, lumbosacral region
CPT/HCPCS: 72148

== ENCOUNTER → 2025-02-06 09:30 | Outpatient (BNVA) | payer MEDICARE, MEDICAID, SELFPAY | PROVIDERS: PCP Nurse Practitioner Family; Visit Provider Anesthesiology Pain Medicine | DX: M48.062 Spinal stenosis, lumbar region with neurogenic claudication (principal); F17.210 Nicotine dependence, cigarettes, uncomplicated | CPT/HCPCS: 99204 ==

== ENCOUNTER 2025-02-16 10:21 | Outpatient (CLI) | payer MEDICARE, MEDICAID, SELFPAY ==
[2025-02-16] MEDS: iohexol 350 mg/mL 500 mL Btl (per mL) PO (11:37)
[2025-02-16 11:42] LABS: Blood Urea Nitrogen 7 mg/dL (8-23)
[2025-02-16] MEDS: iohexol 350 mg/mL 500 mL Btl (per mL) IV (11:48)
--- NOTE | 2025-02-16 12:00 | CTR_ITS ---
PROCEDURE INFORMATION: Exam: CT Abdomen And Pelvis With Contrast Exam date and time: 02/16/2025 11:45 AM Age: 79 years old Clinical indication: Abnormal findings; Abnormal radiologic finding of the abdomen; Radiologic exam and body structure: MR lanza; Prior surgery; Surgery date: 6+ months; Surgery type: Hiatal hernia, tubal; Additional info: K83.8 - other specified diseases of biliary tract TECHNIQUE: Imaging protocol: Computed tomography of the abdomen and pelvis with contrast. Radiation optimization: All CT scans at this facility use at least one of these dose optimization techniques: automated exposure control; mA and/or kV adjustment per patient size (includes targeted exams where dose is matched to clinical indication); or iterative reconstruction. Contrast material: OMNI 350; Contrast volume: 100 ml; Contrast route: INTRAVENOUS (IV); COMPARISON: MR lumbar spine wo con* [id number] 01/24/2025 9:34 AM RADIATION DOSE METRICS: Total DLP (mGy-cm): 374.33 FINDINGS: Lungs: Lung bases show some minimal scarring in the inferior right middle lobe but are otherwise unremarkable. Heart: The heart size is within normal limits. There is no pericardial effusion. There are coronary artery atherosclerotic changes present. Liver: Normal. No mass. Gallbladder and biliary ducts: The gallbladder is without stones or wall thickening. There is prominence of the common bile duct measuring up to 11.2 mm in diameter with gradual tapering within the pancreatic head. No obstructing stone or mass is visible. Pancreas: Pancreas shows mild atrophic changes here there is no ductal distension or visible mass. No pancreatitis is seen. Spleen: A granulomatous calcification is noted within the spleen. Adrenal glands: The left adrenal gland contains an 18.1 x 22.2 x 15.7 mm diameter mixed attenuation nodule with an average attenuation of 86.6 HU. Near the apex of the adrenal there is a 16.5 x 12.5 x 20.7 mm 2nd nodule, with mean attenuation of 59.8 HU. A small nodule in the apex of the right adrenal is present measuring approximately 7 mm in diameter with an attenuation of 58.[address] or MRI is recommended for further evaluation. Kidneys and ureters: The right kidney contains multiple circumscribed low-attenuation lesions consistent with cysts. A small upper pole left renal cortical cyst is also suggested. Bilateral persistent renal lobulation is present. No overly concerning mass lesion, hydronephrosis, or nephrolithiasis is present. Stomach and bowel: Diverticulosis of the sigmoid colon is noted without diverticulitis. A moderate colonic fecal load is present. Additional diverticulosis is noted in the ascending colon. No inflammation, mass lesion, or bowel obstruction is present. Appendix: The appendix is not identified but no evidence of appendicitis. Intraperitoneal space: Unremarkable. No free air. No significant fluid collection. Vasculature: Moderate aortoiliac atherosclerotic calcifications are seen without aneurysm or dissection. There are no significant stenoses. Lymph nodes: Unremarkable. No enlarged lymph nodes. Urinary bladder: Unremarkable as visualized. Reproductive: Unremarkable as visualized. Bones/joints: There is no acute fracture, lytic, or blastic lesion. Mild diffuse lumbar spondylosis is seen. [place]rup's changes are noted at L3-L4. Soft tissues: Unremarkable. CT/CT abdomen pelvis w con* [id number] IMPRESSION: 1. Two left and 1 right adrenal nodules as detailed above. On this contrast-enhanced study their attenuation is indeterminate. Non-emergent adrenal CT is recommended. (Reference: Regina) 2. Colonic diverticulosis without diverticulitis. 3. Multiple benign-appearing renal cortical cysts. COMMENTS: 1. Consistent with the [place] [employer]'s Incidental Findings Committee white paper (J Am Shasta Radiol 2017): Any incidental adrenal lesion less than 1 cm is likely benign. No follow-up imaging is recommended for these lesions per consensus recommendations based on imaging criteria. Further lab evaluation could be pursued if warranted based on clinical findings. 2. Consistent with the [place] [employer]'s Incidental Findings Committee white paper (J Am Shasta Radiol 2018): Any incidental renal lesion less than 1 cm or classified as too small to characterize, or any incidental cystic renal lesion characterized as simple-appearing, is likely benign. No follow-up imaging is recommended for these lesions per consensus recommendations based on imaging criteria. REFERENCES: Regina MATUTE, et al. Management of Incidental Adrenal Masses: A White Paper of the ACR Incidental Findings Committee. J Am Shasta Radiol. 2017;14(8):2611-8340.
== END 2025-02-16 10:22 | disposition home or self-care (01) ==
LOC: RAD 10:23
PROVIDERS: PCP Nurse Practitioner Family; Visit Provider Nurse Practitioner Family
DX: K83.8 Other specified diseases of biliary tract (principal); N28.1 Cyst of kidney, acquired; Z98.890 Other specified postprocedural states; K57.90 Diverticulosis of intestine, part unspecified, without perforation or abscess without bleeding
CPT/HCPCS: 74177; 82565; 84520

== ENCOUNTER → 2025-03-01 13:43 | Outpatient (BNVA) | payer MEDICARE, MEDICAID, SELFPAY | PROVIDERS: PCP Nurse Practitioner Family; Visit Provider Orthopaedic Surgery | DX: Z01.818 Encounter for other preprocedural examination (principal); M48.062 Spinal stenosis, lumbar region with neurogenic claudication | CPT/HCPCS: 36415; 72110; 80053; 81001; 85025; 99214 ==

== ENCOUNTER 2025-03-12 14:14 | Outpatient (CLI) | payer MEDICARE, MEDICAID, SELFPAY ==
[2025-03-12 14:42] LABS: Blood Urea Nitrogen 10 mg/dL (8-23)
[2025-03-12] MEDS: iohexol 350 mg/mL 500 mL Btl (per mL) IV (14:53)
--- NOTE | 2025-03-12 15:30 | CT_ITS ---
WS: [id number] CT ABDOMEN WITH AND WITHOUT CONTRAST, adrenal gland protocol. HISTORY: E27.9 - Disorder of adrenal gland, unspecified Adrenal gland protocol utilized. Oral contrast has not been provided. Coronal and sagittal reformats are submitted. All CT scans at [facility] use at least one of these dose optimization techniques: automated exposure control; mA and/or kV adjustment per patient size (includes targeted exams where dose is matched to clinical indication); or iterative reconstruction. IV CONTRAST: Omnipaque 350; 100 mL IV. Oral contrast: No DLP: 740.83 mGy.cm COMPARISON: 02/08/2025 Lower thorax: Lungs are slightly hyperexpanded with emphysema. Heart is normal size. Small hiatal hernia. Surgical changes at the GE junction from hernia repair. Adrenal glands: Normal RIGHT adrenal gland. No nodule identified. Minimal hyperplasia at the apex. There are 2 masses which are well-circumscribed in the LEFT adrenal gland. The larger mass in the distal limb measures 1.3 x 1.9 cm. Absolute washout value is less than 60%. Indeterminate. The smaller adrenal mass towards the apex measures 1.3 x 1.0 cm. Absolute washout value of 64% is consistent with an adenoma. Normal size liver. There are a few tiny low-attenuation nodules which are too small to characterize. Normal portal vein. Normal size spleen with granulomata. Normal pancreas. No intrahepatic duct dilatation. Right kidney: Normal size kidney. Multiple cortical cysts and areas of scarring. No obstruction. Left kidney: Normal size kidney with multiple areas of cortical scarring and a few cysts. No obstruction. Aorta: Moderate atherosclerosis with no aneurysm. No GI tract obstruction. Moderate distention of the stomach with food products. Diverticular disease in the visualized colon within the abdomen. No acute diverticulitis. No adenopathy. Visualized osseous structures: Unremarkable. CT/CT abdomen wo/w con [id number] IMPRESSION: 1. LEFT adrenal gland masses x 2. The smaller adrenal mass measuring 1.3 x 1.0 cm is a benign adenoma. The larger adrenal mass measures 1.3 x 1.9 cm. Washout value does not confirm this is a benign adenoma. This may be an atypical adeno ma. Consider further evaluation by MRI for adrenal mass protocol or 6-month fol low-up CT evaluation of the adrenal glands. 2. No RIGHT adrenal mass identified. 3. Diverticular disease in the transverse colon without acute diverticulitis. 4. Prior surgical repair of a hiatal hernia. 5. Cortical thinning of each kidney and scattered small cysts.
== END 2025-03-12 14:15 | disposition home or self-care (01) ==
LOC: RAD 14:15
PROVIDERS: PCP Nurse Practitioner Family; Visit Provider Nurse Practitioner Family
DX: E27.9 Disorder of adrenal gland, unspecified (principal); D44.12 Neoplasm of uncertain behavior of left adrenal gland; K57.30 Diverticulosis of large intestine without perforation or abscess without bleeding; N26.1 Atrophy of kidney (terminal); Z98.890 Other specified postprocedural states
CPT/HCPCS: 74170; 82565; 84520

== ENCOUNTER → 2025-03-21 11:53 | Outpatient (BNVA) | payer MEDICARE, MEDICAID, SELFPAY | PROVIDERS: PCP Nurse Practitioner Family; Visit Provider Family Medicine | DX: R32 Unspecified urinary incontinence (principal) | CPT/HCPCS: 81000; 87086 ==